=== PATIENT | male | born 1975 | race Hispanic/Latino ===

== ENCOUNTER 2021-11-25 21:47 | Emergency (ER) | payer OTHER ==
[2021-11-25] MEDS ORDERED: Ketorolac Tromethamine 30 MG/ML VIAL ONE (23:20)
[2021-11-25] MEDS ORDERED: Boostrix 0.5 ML (Tdap) VIAL ONE (23:20)
== END 2021-11-26 01:14 | disposition home or self-care (01) ==
LOC: CSHERS 21:47
DX: S20.212A Contusion of left front wall of thorax, initial encounter (principal); S60.211A Contusion of right wrist, initial encounter; M62.830 Muscle spasm of back; V89.2XXA Person injured in unspecified motor-vehicle accident, traffic, initial encounter
CPT/HCPCS: 71046; 90471; 90715; 96374; J1885